=== PATIENT | female | born 1985 | race Caucasian/White ===

== ENCOUNTER 2019-09-19 12:37 | Outpatient (CLI) | payer MEDICAID, SELFPAY ==
[2019-09-19 14:01] LABS: Kit/Specimen SENT
[2019-09-19 14:13] LABS: Abs Immature Grans 0.03 k/cumm (0.0-0.09); Absolute Basophil Count 0.02 k/cumm (0.0-0.2); Absolute Eosinophil Count 0.15 k/cumm (0.0-0.7); Absolute Lymphocyte Count 3.45 k/cumm (1.2-3.4); Absolute Monocyte Count 0.55 k/cumm (0.11-0.7); Absolute Neutrophil Count 4.92 k/cumm (1.2-6.7); Basophils % 0.2; Eosinophils % 1.6; HCT 36.7 % (36.0-46.0); HGB 12.8 g/dL (12.0-15.5); Immature Grans % 0.3 %; Lymphocytes % 37.8; Mean Corp. HGB Concentration 34.9 g/dL (32.0-36.0); Mean Corpuscular Hemoglobin 31.8 pg (27.0-33.0); Mean Corpuscular Volume 91.3 fL (80-95); Mean Platelet Volume 11.2 fL (8.0-11.0); Neutrophils % 54.1; Platelet Count 247 x1000/uL (130-400); RBC 4.02 m/cumm (4.00-5.20); RBC Distribution Width 12.9 % (11.7-14.6); White Blood Cell Count 9.12 k/cumm (4.4-10.8)
[2019-09-19 14:34] LABS: TSH (W/Ref FT4) 1.47 uIU/mL (0.36-3.74)
[2019-09-22 10:59] LABS: Hepatitis B Surface Ag Negative (Negative)
[2019-09-22 11:11] LABS: HIV-1/2 Ag & Ab Screen Negative (Negative)
[2019-09-22 11:27] LABS: Hepatitis C Ab w Rflx HCV PCR Negative (Negative)
[2019-09-23 12:21] LABS: Varicella IgG Antibody Positive (See Note)
[2019-09-23 12:32] LABS: Rubella IgG Ab (UVM) Positive (See Note); Syphilis Serology (RPR) Negative (Negative)
[2019-09-29 17:19] LABS: Result Summary NEGATIVE; Specimen WB Whole Blood
== END 2019-09-19 12:57 ==
LOC: LBN 13:37 → LBO 13:49 → LBN 13:49 → LBO 13:49
PROVIDERS: Visit Provider Advanced Practice Midwife
DX: Z34.91 Encounter for supervision of normal pregnancy, unspecified, first trimester (principal); Z11.4 Encounter for screening for human immunodeficiency virus [HIV]; Z11.59 Encounter for screening for other viral diseases; Z01.84 Encounter for antibody response examination
CPT/HCPCS: 36415; 80055; 86787; 86803; 86850; 86900; 86901; 87340; 87389; 81220; 84443; 86592; 86762

== ENCOUNTER 2019-09-19 15:50 | Outpatient (REF) | payer MEDICAID, SELFPAY ==
--- NOTE | 2019-09-19 11:00 | PAPFT_PTH ---
PATIENT: Anna Marie Stahl LOC: OPAL U#:[id number] AGE/SX: 33/F ROOM: RE09/19/[address]: Sabra Brennan : 1985 BED: DIS: 09/19/2019 SPEC #: [id number] RECD: 09/22/19 12:20 STATUS: ANALILIA REWilver #: [id number] GÉNESIS: 09/19/19 11:[address]: Sabra Brennan DEPT: [facility] Cytology RECD BY: Evaristo Saucedo Tissues: 1 - CX/ENDOCX FOR PAP SMEARS Procedures: PAP THIN PREP/UVM Screening HPV DNA PROBE Comments: [id number]
[2019-09-19 18:10] LABS: *AMPHETAMINES SCREEN URINE Negative (Negative); *BARBITURATES SCREEN URINE Negative (Negative); *BENZODIAZEPINES SCREEN URINE Negative (Negative); Cannabinoids THC POSITIVE (Negative); Cocaine Screen,Urine Negative (Negative); METHADONE URINE SCREEN POSITIVE (Negative); OPIATES URINE SCREEN Negative (Negative)
[2019-09-19 18:13] LABS: Tricyclic Antidepressants Negative (Negative)
[2019-09-22 15:33] LABS: Chlamydia Result Negative (Negative); GC Result Negative (Negative)
[2019-09-23 07:04] LABS: Buprenorphine Negative; Norbuprenorphine Negative
== END 2019-09-19 16:10 ==
LOC: LBN 15:50
PROVIDERS: Visit Provider Advanced Practice Midwife
DX: Z34.91 Encounter for supervision of normal pregnancy, unspecified, first trimester (principal); Z11.3 Encounter for screening for infections with a predominantly sexual mode of transmission; Z12.4 Encounter for screening for malignant neoplasm of cervix
CPT/HCPCS: 80307; 87491; 87591; 88142; 87086; 87624

== ENCOUNTER 2019-10-29 10:50 | Outpatient (CLI) | payer MEDICAID, SELFPAY ==
[2019-10-30 15:20] LABS: Calculated age at EDD 32 years; GA used in risk estimate Scan estimate; IVF Pregnancy No; Initial or repeat testing Initial testing; Insulin dependent diabetes No; Maternal Weight 173 lbs; Number of Fetuses 1; Prev Pregnancy w/NTD No; RECOMMENDED FOLLOW UP None.; Results Summary Normal risk
== END 2019-10-29 11:10 ==
PROVIDERS: Obstetrics & Gynecology; PCP Nurse Practitioner; Visit Provider Nurse Practitioner
DX: Z34.92 Encounter for supervision of normal pregnancy, unspecified, second trimester (principal); Z36.89 Encounter for other specified antenatal screening
CPT/HCPCS: 36415; 82105

== ENCOUNTER 2019-12-08 00:28 | Outpatient (CLI) | payer MEDICAID, SELFPAY ==
--- NOTE | 2019-12-08 | DI.US_ITS ---
EXAM: US OB 2-3 TRIMESTER CLINICAL HISTORY: Z98.891 HX UTERINE SCAR, O09.90 SUPERVISION HIGH RISK . TECHNIQUE: Transabdominal obstetrical ultrasound performed. COMPARISON: No exams were available for comparison FINDINGS: Transabdominal obstetrical ultrasound performed. FINDINGS: Number of fetuses: One. position: Cephalic heart rate: 153 bpm. Placental location: Posterior. No evidence of previa. BIOMETRIC DATA: BPD: 4.9cm HC: 18.1cm AC: 16.5cm FL: 3.7cm Cisterna Magna: 3.5 mm Cerebellum: 2.1 cm EFW: 425 grms 19% Composite Age: 21 weeks 1 day EDC by US: 04/08/2020 Heart Rate: 153BPM Amniotic fluid index: Amount of fluid is within normal limits. ANATOMICAL SURVEY: Four-chambered heart: Unremarkable. LVOT: Unremarkable. RVOT: Unremarkable. Left-sided stomach: Unremarkable. urinary bladder: Unremarkable. Bilateral kidneys: Unremarkable. Three-vessel cord: Unremarkable. Cord insertion: Unremarkable. Posterior fossa:Unremarkable. ventricles: Unremarkable. nose: Unremarkable. lips: Unremarkable. palate: Unremarkable. spine: Unremarkable. Two arms and two legs: Unremarkable. IMPRESSION: 1. Single live intrauterine gestation as above. 2. Normal anatomic survey. DATA REPOSITORY:
== END 2019-12-08 00:48 ==
PROVIDERS: PCP Nurse Practitioner; Visit Provider Obstetrics & Gynecology
DX: Z98.891 History of uterine scar from previous surgery (principal); Z34.92 Encounter for supervision of normal pregnancy, unspecified, second trimester; Z3A.21 21 weeks gestation of pregnancy
CPT/HCPCS: 76805

== ENCOUNTER 2020-02-06 04:03 | Outpatient (CLI) | payer MEDICAID, SELFPAY ==
--- NOTE | 2020-02-06 06:30 | DI.US_ITS ---
EXAM: US OB BOB WEIGHT CLINICAL HISTORY: size less than dates,Z34.83. TECHNIQUE: Transabdominal obstetrical ultrasound performed. COMPARISON: US US OB 2-3 TRIMESTER from 12/08/2019 FINDINGS:: Number of fetuses: One. position: Vertex. Placental location: Posterior. No evidence of previa. BIOMETRIC DATA: BPD: 74mm = 29+ 4 weeks HC: 278mm = 30+ 3 weeks AC: 259mm = 30+ 0 weeks FL: 54 mm = 28+ 4 weeks EFW: 1413 Gms = 11 % Composite Age: 29+ 5 EDC by ultrasound: 18 April 2020 Heart Rate: 139BPM Amniotic fluid index: 19.0 cm. Amount of fluid is within normal limits. Umbilical artery Doppler: 34/10 cm/sec RI = 0.71 PI= 1.20 S/D = 3.47 IMPRESSION: size and weight are within low normal range. Umbilical artery Doppler measurements are within the normal range. DATA REPOSITORY:
[2020-02-06 09:31] LABS: HCT 32.3 % (36.0-46.0); HGB 11.2 g/dL (11.2-15.7); MCHC 34.7 % (32.0-36.0); MCV 92.3 fL (80-95); MPV 9.9 fL (8.0-11.0); Platelet Count 320 10^3/uL (130-400); RDW 13.2 % (11.7-14.6); RDW-SD 44.1 fL; WBC 12.77 10^3/uL (4.4-10.8)
[2020-02-06 09:37] LABS: Glucose,1 Hr (Glucola) 85 mg/dL (80-140)
== END 2020-02-06 04:23 ==
PROVIDERS: PCP Nurse Practitioner; Visit Provider Obstetrics & Gynecology Gynecology
DX: Z34.83 Encounter for supervision of other normal pregnancy, third trimester (principal)
CPT/HCPCS: 36415; 76816; 82950; 85027; 86850; 90384

== ENCOUNTER 2020-02-20 03:58 | Outpatient (CLI) | payer MEDICAID, SELFPAY ==
--- NOTE | 2020-02-20 07:30 | DI.US_ITS ---
EXAM: US OB BOB UMBILICAL ARTERY CLINICAL HISTORY: SMALL FOR AGE,O36.5990. TECHNIQUE: Transabdominal obstetrical ultrasound performed. COMPARISON: US US OB BOB WEIGHT from 02/06/2020 FINDINGS: Transabdominal obstetrical ultrasound performed. FINDINGS: Number of fetuses: One. Placental location: Posterior and fundal. No evidence of previa. BIOMETRIC DATA: Heart Rate: 121BPM Amniotic fluid index: 11.6 cm. Visually, amount of fluid is within normal limits. Umbilical artery: Within normal limits for age. RI is 0.69 PI is 1.18 S/D is 3.19 IMPRESSION: 1. Single live intrauterine gestation as above. 2. Umbilical artery indices within normal limits. 3. Amniotic fluid index is 11.6 cm. Visually within normal limits. DATA REPOSITORY:
== END 2020-02-20 04:18 ==
PROVIDERS: PCP Nurse Practitioner; Visit Provider Obstetrics & Gynecology
DX: O36.5930 Maternal care for other known or suspected poor fetal growth, third trimester, not applicable or unspecified
CPT/HCPCS: 76816; 76820

== ENCOUNTER 2020-02-27 04:47 | Outpatient (CLI) | payer MEDICAID, SELFPAY ==
--- NOTE | 2020-02-27 07:30 | DI.US_ITS ---
EXAM: US OB BOB WEIGHT CLINICAL HISTORY: SGA in ,O36.5990,UMBILICAL ARTERY DOPPLER. COMPARISON: US US OB BOB WEIGHT from 02/06/2020 US US OB BOB UMBILICAL ARTERY from 02/20/2020 TECHNIQUE: Transabdominal obstetrical ultrasound performed. FINDINGS: Sonographic images demonstrate a single intrauterine gestation in cephalic position. Placenta: Posterior Predicted gestational age: 33 +4 weeks Estimated date of delivery 12 April 2020: heart rate motion is Dopplered at: 118 BPM. BPD: 78mm = 30 1+2 weeks HC: 290mm = 31+ 6 weeks AC: 273mm = 30 1+3 weeks FL: 60mm = 30 1+2 weeks EFW: 1758 Grams = 3rd % Sonographically assessed composite gestational age: 31 +3 weeks Estimated date of delivery based on this ultrasound is: 27 April 2020 Amniotic fluid index: 12.5 cm. Amount of fluid is within normal limits. Umbilical artery Doppler evaluation shows resistive index, pulsatility index and systolic-diastolic r atio in the normal range, between 50th and 95th percentiles. IMPRESSION: size and weight are measuring below the normal range. Umbilical artery Doppler evaluation with in normal limits. DATA REPOSITORY:
== END 2020-02-27 05:07 ==
PROVIDERS: PCP Nurse Practitioner; Visit Provider Obstetrics & Gynecology
DX: O36.5931 Maternal care for other known or suspected poor fetal growth, third trimester, fetus 1 (principal)
CPT/HCPCS: 76816

== ENCOUNTER 2020-03-30 12:34 | Outpatient (CLI) | payer MEDICAID, SELFPAY ==
--- NOTE | 2020-03-30 10:45 | DI.US_ITS ---
EXAM: US OB BIOPHYSICAL PROFILE and U/S Ob BOB weight CLINICAL HISTORY: growth and BOB,BPP, O36.5990, Z34.90 TECHNIQUE: Ultrasound biophysical profile performed using standard protocol. COMPARISON: US US OB BOB WEIGHT from 02/27/2020 US US OB BOB WEIGHT from 03/30/2020 FINDINGS: ULTRASOUND BIOPHYSICAL PROFILE: Number of fetuses: One. position: Cephalic heart rate: 117 bpm. Placental grade: 2 Placental location: Posterior. No evidence of previa. Ultrasound gestational age: 33 weeks Estimated weight: 2084 Grams. This corresponds to 1st percentile. Estimated date of delivery: 05/18/2020 based on ultrasound. Amniotic fluid index: 11.8 cm. Single deepest pocket is 3.7 cm. BIOPHYSICAL PROFILE SCORE: breathin out of 2 movement: 2 out of 2 tone: 2 out of 2 Amniotic fluid: 2 out of 2 Overall biophysical profile score: 8 out of 8. Umbilical artery Doppler: Within normal limits. S/D is 2.35 RI is 0.57 PI is 0.93 IMPRESSION: Single live intrauterine gestation. Biophysical profile 8 out of 8. DATA REPOSITORY:
== END 2020-03-30 12:54 ==
PROVIDERS: PCP Nurse Practitioner; Visit Provider Obstetrics & Gynecology
DX: O36.5930 Maternal care for other known or suspected poor fetal growth, third trimester, not applicable or unspecified (principal); Z34.93 Encounter for supervision of normal pregnancy, unspecified, third trimester
CPT/HCPCS: 76815; 76816; 76819

== ENCOUNTER 2020-03-30 13:00 | Inpatient (IN) | payer MEDICAID, SELFPAY ==
[2020-03-30] VITALS (9 sets, daily range): BP systolic 109–126; BP diastolic 16–74; PULSE 54–60; RESP 16–18; TEMP 36.5–36.9; O2SAT 96–98
--- NOTE | 2020-03-30 13:03 | W.PM.HP.N ---
Date of service: 03/30/20 Time of Service: 13:03 Assessment and Plan Assessment and plan (1) SGA (small for gestational age), , affecting care of mother, antepartum: Status: Acute Assessment and plan: In light of the fact that the patient has been noncompliant with her obstetric care, has a history of 2 prior sections, is currently utilizing medication assisted therapy with methadone, and has a fetus at less than the 1st percentile the decision was made for repeat section today. Laboratory studies will be performed. Preoperative antibiotics given. She will have compression stockings for prevention of thromboembolic disorders. Pediatrics is notified and aware of patient will be delivering. (2) Substance use disorder: Status: Acute (3) Social discord: Status: Acute (4) , high-risk: Status: Acute (5) Rh negative state in antepartum period: Status: Acute (6) Tobacco dependence: Status: Acute (7) Previous section: Status: Chronic (8) Anxiety: Status: Chronic (9) Asthma: Status: Chronic History of Present Illness History of Present Illness Chief Complaint: Need for repeat section Narrative: Patient is a 32-year-old female 5 para 2 with history of 2 previous sections. She has had limited care in our office. She was seen today at 38 weeks and 1 day concerned as to when her repeat section will be scheduled. Risk benefits and alternatives of section were explained to the patient full informed consent has been obtained. She does have a history of growth restricted baby this with last ultrasound measuring at the 11th percentile. She had a growth ultrasound with amniotic fluid index and biophysical profile performed today showing baby at less than the 1st percentile with a biophysical of 8 out of 8. She was sent to labor and delivery for monitoring. She is having irregular contractions. heart rate baseline is in the 117 with moderate variability no good accelerations. We discussed continuation of versus repeat section. This was discussed also with pediatrics who agreed that delivery here is reasonable. Laboratory studies were placed along with Covid testing preoperative laboratory studies were ordered and patient will be prepped for section today. Review of Systems All systems reviewed & are unremarkable except as noted in HPI and below Constitutional Constitutional: Reports as per HPI Cardiovascular Cardiovascular: Reports system reviewed and no additional complaints, except as documented Respiratory Respiratory: Reports system reviewed and no additional complaints, except as documented Gastrointestinal Gastrointestinal: Reports system reviewed and no additional complaints, except as documented Genitourinary Genitourinary: Reports system reviewed and no additional complaints, except as documented Musculoskeletal Musculoskeletal: Reports system reviewed and no additional complaints, except as documented Neurologic Neurologic: Reports system reviewed and no additional complaints, except as documented PFSH Medical History Anxiety No meds currently Asthma albuterol PRN Depression no meds currently Marijuana abuse Opioid dependence on agonist therapy , high-risk Social discord 01/28/20 [facility] BF in senior living. She had parole violation and is expecting a court hearing. Substance use disorder 01/28/20. Hx of ETOH use in . Illicit Gabapentin use. Tobacco dependence Surgical History Previous section Family History Father Cancer Social History Smoking risk assessment performed?: No Substance use type: opiates Counseling provided: treatment program Details: 01/21/20. BAART 112mg/day Household members: significant other and other Details: Satinder Gao. Children live with their father Number of Children: 2 current occupation: not employed Current gender identity: female What type of physical activity do you participate in: walking Frequency: other Details: does not have a car. Female Reproductive History Menstrual control method: none History History 4 Para 2 Hx # Term Pregnancies Multiple births Hx # Pregnancies Ectopic pregnancies AB induced 1 Hx Number of Living Children AB spontaneous 1 Past Pregnancies Del. Date GA/Weeks # Outcome Route Wgt Sex Labor Lgth Anesthesia Location Prov Complic 04/29/14 40 No Successful 6 lb 14 oz Male [place] 10/18/15 40 No Successful 5 lb 5 oz Female [place] Delivery Date: 04/29/14 planned due to issue with umbilical cord [facility] Hath[facility] Delivery Date: 10/18/15 scheduled repeat , Sabra Chan Meds Home Medications and Allergies Home Medications Medication Instructions Recorded Confirmed Type methadone 5 mg/5 mL oral solution 95 mg PO DAILY ml 09/10/19 03/30/20 History vitamin with calcium 1 tab PO DAILY #90 tab 10/29/19 03/30/20 Rx no.72-iron 27 mg-folic acid 1 mg tablet albuterol sulfate 90 mcg/actuation 2 puff IH QID PRN #8 gm 02/06/20 03/30/20 Rx aerosol inhaler budesonide 90 mcg/actuation breath 1 inh INHALATION BID #1 ea 02/06/20 03/30/20 Rx activated powder inhaler ondansetron HCl 4 mg tablet 4 mg PO Q8H #24 tab 02/06/20 03/30/20 Rx Allergies Allergy/AdvReac Type Severity Reaction Status Date / Time codeine Allergy Unknown Verified 03/30/20 09:59 Exam Const General: cooperative, healthy appearing and comfortable Nutritional Appearance: average body habitus [facility] General nose exam: external nose normal Eyes General: appearance normal, both eyes and all related structures Conjunctivae: conjunctivae normal Sclera: sclerae normal Cornea: corneas normal Resp Effort & Inspection: normal respiratory effort, no audible wheezes and no cough Auscultation: clear to auscultation bilaterally, no rales, no rhonchi and no wheezes Cardio Palpation: normal PMI Rhythm: regular rhythm Heart Sounds: S1 normal, S2 normal and no murmurs GI Inspection: normal to inspection Palpation: soft, not firm and no guarding Skin General skin exam: no rashes or lesions noted Extrem General: no clubbing, cyanosis or edema Results Labs Result diagrams: 03/30/20 Unknown Last Vital Signs Pulse 58 L 03/30/20 12:35 BP 123/67 03/30/20 12:35 COVID-19 Screening Have you,or household,traveled outside [place] in last 14 days?: No
[2020-03-30] MEDS: Lactated Ringers 1,000 ML 200 ML IV ×2 (13:24→17:53)
[2020-03-30 13:32] LABS: HCT 35.1 % (36.0-46.0); MCH 31.9 pg (27.0-33.0); MCHC 34.2 % (32.0-36.0); MCV 93.4 fL (80-95); MPV 11.3 fL (8.0-11.0); Platelet Count 252 10^3/uL (130-400); RBC 3.76 10^6/uL (3.93-5.22); RDW 12.6 % (11.7-14.6); RDW-SD 43.3 fL; WBC 13.24 10^3/uL (4.4-10.8)
[2020-03-30] MEDS: Sodium Citrate 30 ML CUP PO (13:33)
[2020-03-30] MEDS: AZITHROMYCIN 500 MG in Normal Saline 250 ML 250 MG IVPB (13:34)
[2020-03-30] MEDS: ceFAZolin 2 GM/50 ML BAG IVPB (14:12)
--- NOTE | 2020-03-30 14:21 | PLAC_PTH ---
PATIENT: Anna Marie Stahl LOC: OBS U#:[id number] AGE/SX: 34/F ROOM: OBS.305 RE03/30/[address]: Amy Cabrera DO : 1985 BED: A DIS: 04/01/2020 SPEC #: [id number] RECD: 03/30/20 17:08 STATUS: ANALILIA REQ #: [id number] GÉNESIS: 03/30/20 14:[address]: Amy Cabrera DEPT: Surgical Specimen RECD BY: Wendy Pedersen ENTERED: 03/30/20 17:09 SP TYPE: PLAC OTHR DR: Lorrie Wilcox Tissues: 1 - PLACENTA (3RD TRIMESTER) Procedures: GROSS AND MICRO LEVEL 5 Comments: [id number]
--- NOTE | 2020-03-30 14:55 | W.PM.OBCSECT ---
Date of service: 03/30/20 Time of Service: 14:55 Operative Note Operative Note Delivery Method: Unscheduled Category: Urgent DATE OF PROCEDURE: 03/30/20 PRE-OP DIAGNOSES: IUP at 38 1/7, severe IUGR POST-OP DIAGNOSES: same 5 para 2 at 38-1/7 weeks gestation. Severe IUGR with estimated weight less than the 1st percentile, scant care, prior section x2, substance use disorder PROCEDURE: Repeat low transverse section SURGEON: Amy Cabrera Assisting Surgeon: Crispin Rubalcava Anesthesia: spinal Estimated blood loss (mL): 500 Pathology: other (Placenta for exam, segment of cord for toxicology) Patient was transported to: floor Patient's condition: stable Indications: at 38-1/7 weeks gestation #2 prior section x2 #3 severe growth restriction Findings: Delivery of viable female infant. Procedure Description: Patient is a 34-year-old female 5 para 2-0-2-2 who had limited care at the [facility]. She presented today at 38-1/7 weeks gestation. She has a known history of 2 prior sections and substance use disorder for which she has been using methadone through the [facility] program. She was known to have growth restriction with last ultrasound approximately 2 months ago and baby measuring at 11 percentile. Recommendation at that point was for weekly cord Dopplers which were not undertaken. She presented today for visit and scheduling of her repeat section. She was significantly size less than dates. She an ultrasound performed today with biophysical profile showing an estimated weight at 2000 g, less than the 1st percentile and a normal biophysical profile. Nonstress test was nonreactive with moderate variability. In light of this fact, consultation with pediatrics was undertaken and they agreed with delivery here in the late phase. Risk benefits and alternatives procedure have been explained to the patient full informed consent was obtained. She was taken to the operating suite with an IV running where she is placed in a seated position and spinal anesthesia administered tested and found to be adequate. She was then placed in the dorsal supine position with a leftward tilt and prepped and draped in the usual sterile fashion. At this point after Suarez catheter and compression stockings had been placed Pfannenstiel skin incision was made carried down to the underlying fascia. The fascia was nicked in the midline and extended laterally. Rectus muscles identified split in the midline and peritoneum identified tented up and entered sharply. The peritoneal incision was then extended superiorly and inferiorly and the bladder blade was inserted. Vesicouterine peritoneum identified tented up and entered sharply and the bladder was meticulously dissected off the lower uterine segment. The lower uterine segment was found to be significantly thin and transparent. Incision was made in the midline and extended bluntly laterally. Amniotic sac was ruptured for yellowish fluid and the vertex was delivered through the uterine incision. Shoulders followed with ease. There was no evidence of nuchal cord. Three-vessel cord was noted clamped x2 and cut and the was handed off to the waiting pediatric group. At this port cord blood, and a segment of cord was obtained for toxicology. The placenta was manually expressed from the uterus. Uterus exteriorized and cleared of all clot and debris. Uterine incision was then closed using 0 Monocryl suture in a running locked fashion and a second layer of an imbricating stitch of 0 Monocryl was performed. Uterus was reinspected and found to be hemostatic. Tubes and ovaries were normal. Uterus returned to the abdomen. At this point the fascial incision was closed using 0 Vicryl suture in a running fashion. Subcutaneous tissue irrigated with copious muscle normal saline and the subcu space closed with 3-0 Vicryl. Skin edge was reapproximated with a 4-0 undyed Monocryl in a subcuticular fashion. Steri-Strips were then placed. Patient was then returned to the center in stable condition. Findings: Delivered viable female weight and Apgars pending EBL: 500 cc Complications: None apparent
[2020-03-30] MEDS: Ketorolac 30 MG/ML VIAL IVP ×2 (16:34→22:07)
[2020-03-30] MEDS: Oxytocin/Normal Saline 30 UNIT/500 ML BAG 95 UNITS IV (16:51)
[2020-03-30] MEDS: Acetaminophen 325 MG TAB 650 MG PO (20:00)
[2020-03-30] MEDS: Normal Saline Flush 10 ML SYR IVP (22:07)
[2020-03-31] VITALS (7 sets, daily range): BP systolic 108–135; BP diastolic 68–74; PULSE 54–62; RESP 16–96; TEMP 36.6–36.8; O2SAT 96
[2020-03-31] MEDS: Acetaminophen 325 MG TAB 650 MG PO ×2 (00:20→15:53)
[2020-03-31] MEDS: Normal Saline Flush 10 ML SYR IVP ×2 (04:30→10:06)
[2020-03-31] MEDS: Ketorolac 30 MG/ML VIAL IVP ×2 (04:30→10:05)
[2020-03-31 07:37] LABS: Abs Immature Grans 0.06 10^3/uL (0.0-0.06); Absolute Basophil Count 0.04 10^3/uL (0.0-0.2); Absolute Lymphocyte Count 4.01 10^3/uL (1.2-3.4); Absolute Neutrophil Count 5.65 10^3/uL (1.2-6.7); Basophils % 0.4; Eosinophils % 1.8; HCT 30.1 % (36.0-46.0); HGB 10.3 g/dL (11.2-15.7); Immature Grans % 0.6; Lymphocytes % 36.9; MCH 31.9 pg (27.0-33.0); MCHC 34.2 % (32.0-36.0); MCV 93.2 fL (80-95); MPV 11.9 fL (8.0-11.0); Monocytes % 8.3; Nucleated RBC 0 %; Platelet Count 202 10^3/uL (130-400); RBC 3.23 10^6/uL (3.93-5.22); RDW 12.8 % (11.7-14.6); RDW-SD 43.7 fL; WBC 10.86 10^3/uL (4.4-10.8)
--- NOTE | 2020-03-31 08:18 | W.PM.OBPNV1 ---
Date of service: 03/31/20 Time of Service: 08:18 Assessment and Plan Assessment and plan (1) Status post repeat low transverse section: Status: Acute Assessment and plan: Postoperative day #1 status post repeat low transverse section at 38 weeks and 1 day due to severe intrauterine growth restriction. Doing well. Will ambulate, advance diet, oral pain medication. (2) Substance use disorder: Status: Acute Assessment and plan: Patient has been on the methadone medication assisted therapy program through July. Her dose was confirmed today at 110 mg on a daily basis. She does understand that if we dose her today and tomorrow she will return to her previous doses that were dispensed to her program upon her return on Sunday. (3) SGA (small for gestational age), , affecting care of mother, antepartum: Status: Acute Assessment and plan: Baby doing well, rooming in, working on breast-feed (4) Social discord: Status: Acute Subjective Subjective Interval history: Patient seen and examined this morning. She is doing well. She has some pain but is reasonably well controlled. She is pumping to express colostrum for her baby who is in the room doing well. Patient comments: No complaints Patient's Mood: Appropriate [place] feeding status: Pumping and bottle feeding Exam Physical Exam Vital signs: Temp Pulse Resp BP Pulse Ox 97.9 F 54 L 16 135/71 96 03/31/20 07:56 03/31/20 07:56 03/31/20 07:56 03/31/20 07:56 03/31/20 00:00 Constitutional Constitutional: no acute distress HEENT Exam HEENT Exam: Normal Detailed Neck Exam Neck exam general surgery: Present supple Respiratory Exam Respiratory Exam: Normal Cardiovascular Exam Cardiovascular Exam: Normal Abdominal Exam Comments: Abdomen soft, nontender, uterus firm. Incision examined, healing well, no drainage or discharge. Fundal Exam Fundus: Below Umbilicus and Firm Extremities Exam Extremity Exam: Normal; negative Calf Tenderness and Edema Skin Exam Skin Exam: Normal Neurological Exam Neurological Exam: Normal DetailedPsychiatric Exam Psych Exam: Normal Affect and Cooperative Results Hemoglobin/Hematocrit: Hgb 10.3 g/dL (11.2-15.7) L 03/31/20 07:05 Hct 30.1 % (36.0-46.0) L 03/31/20 07:05 Abnormal Lab Findings: Abnormal Labs 03/30/20 03/31/20 13:20 07:05 WBC 13.24 H 10.86 H RBC 3.76 L 3.23 L Hgb 10.3 L Hct 35.1 L 30.1 L MPV 11.3 H 11.9 H Absolute Lymphocytes 4.01 H Absolute Monocytes 0.90 H
[2020-03-31] MEDS: Methadone Liquid 10 MG/ML 110 MG PO (09:12)
--- NOTE | 2020-03-31 14:53 | NUR.NOTE ---
Nursing Note: Received phone call from Carol Bergman, [facility] worker out of [place], [place] who has been the manager of case management for Anna Marie's older two children. She believes the case number for her older two children is #[id number]. Carol states that she has had a difficult time contacting the pt and is looking to follow-up with her delivery status as well as any issues noted with the . The [facility] office does plan to close Anna Marie's open case with them as her two older children are back in the custody of their father. Reviewed pt hx with Carol, including that pt was not seen in office for care from 02/06/20 until 03/30/20. Carol states I was worried about that. Carol asked if baby had tested for any other substances and was informed that Cord Drug Detection Screen was sent but will not have results for several days. Discussed that Anna Marie does also have a new case open with the [place], [place] DCF office and believes that block and case maker name is Rona. She also believes Rona plans to wait until pt is discharged to home to complete a home visit and follow-up with case. Discussed that case number and workers name would be placed on pt chart for follow-up by healthcare team. No further questions at this time.
[2020-03-31] MEDS: Ibuprofen 600 MG TAB PO ×2 (15:52→20:21)
[2020-03-31] MEDS: oxyCODONE 5 mg/Acetaminophen 325 mg TAB PO (20:28)
[2020-04-01 00:15] VITALS: BP 118/72; PULSE 64; RESP 16; TEMP 36.8
[2020-04-01] MEDS: oxyCODONE 5 mg/Acetaminophen 325 mg TAB PO (04:14)
[2020-04-01] MEDS: Ibuprofen 600 MG TAB PO (04:14)
[2020-04-01 04:37] VITALS: BP 98/62; PULSE 52; RESP 18; TEMP 37
--- NOTE | 2020-04-01 04:39 | NUR.NOTE ---
Nursing Note: Babe back to mom's room at 4:15, asleep on back in crib. (see documentation in baby chart) Discussed with patient how unsafe the baby was when I found her in bed with mom earlier. Demonstrated how babe was sleeping in crib, encouraged wrapping baby in single receiving blanket for comfort. Encouraged pt to call for nursing staff if she feels she is too sleepy to safely care for . Pt verbalizes understanding. Again offered to assist patient with pump set up or . Pt declines at this time.
[2020-04-01 07:47] VITALS: BP 112/66; PULSE 63; RESP 98; TEMP 36.6
--- NOTE | 2020-04-01 08:12 | OBPPV_ITS ---
Date of service: 04/01/20 Time of Service: 08:12 Assessment and Plan Assessment and plan (1) Status post repeat low transverse section: Status: Acute Assessment and plan: Postoperative day #2 status post repeat low transverse uterine incision section. Doing well. Discharge home today. Follow-up in the office in 2 weeks. Depo-Provera for contraception (2) SGA (small for gestational age), , affecting care of mother, antepartum: Status: Acute (3) Substance use disorder: Status: Acute Subjective Subjective Interval history: Patient seen postoperative day #2. She is ambulating, tolerat ing her regular diet and oral pain medication with stable vital signs. She is anticipating discharge today as a border. Patient comments: No complaints, Pain well controlled, Incisional pain, Tolerating diet and Flatus present baby status: Doing well Exam Physical Exam Vital signs: Temp Pulse Resp BP Pulse Ox 97.9 F 63 98 H 112/66 96 04/01/20 07:47 04/01/20 07:47 04/01/20 07:47 04/01/20 07:47 03/31/20 00:00 Constitutional Constitutional: no acute distress HEENT Exam HEENT Exam: Normal Respiratory Exam Respiratory Exam: Normal Cardiovascular Exam Cardiovascular Exam: Normal Abdominal Exam Abdomen: Tender Fundal Exam Fundus: Below Umbilicus and Firm Detailed Skin Exam Skin: Present intact Comments: Incision healing well. Limited ecchymosis in the superior and inferior aspect of the incision. No evidence of erythema Detailed Neurological Exam Neurological: Present alert and oriented X3 Results Hemoglobin/Hematocrit: Hgb 10.3 g/dL (11.2-15.7) L 03/31/20 07:05 Hct 30.1 % (36.0-46.0) L 03/31/20 07:05 Abnormal Lab Findings: Abnormal Labs 03/30/20 03/31/20 13:20 07:05 WBC 13.24 H 10.86 H RBC 3.76 L 3.23 L Hgb 10.3 L Hct 35.1 L 30.1 L MPV 11.3 H 11.9 H Absolute Lymphocytes 4.01 H Absolute Monocytes 0.90 H
--- NOTE | 2020-04-01 08:18 | W.PM.DS.N ---
Date of service: 04/01/20 Time of Service: 08:18 DS: Diagnosis Discharge Diagnosis (1) Status post repeat low transverse section: Status: Acute (2) SGA (small for gestational age), , affecting care of mother, antepartum: Status: Acute (3) Substance use disorder: Status: Acute Discharge Plan Disposition Patient Disposition: HOME Condition: Good Discharge Details Reason For Visit: DELIVERY Admit Date/Time: 03/30/20 13:00 Admit Provider: Amy Cabrera Attending Provider: Amy Cabrrea Primary Care Provider: Lorrie Wilcox Hospital Course Hospital Course: Patient was admitted for repeat low transverse section. She had limited care with his wellness. She was noted to have severe growth restriction of her baby at 38 weeks and 1 day. She underwent her repeat section due to this reason. She had uncomplicated postoperative course. She was discharged to a [facility] status postoperative day #2. Ambulating, tolerating regular diet and oral pain medication with stable vital signs. Her follow-up will be in the office in 2 weeks. She will continue her medication assisted therapy with methadone through the [facility] program. She will receive Depo-Provera prior to her discharge. Home Meds and New Rx's Prescriptions: New ibuprofen 800 mg tablet 800 mg PO Q8H Qty: 20 RF: 2 docusate sodium [Colace] 100 mg capsule 100 mg PO DAILY Qty: 30 RF: 0 No Action methadone 5 mg/5 mL solution 95 mg PO DAILY RF: 0 PrePlus 27 mg iron- 1 mg tablet 1 tab PO DAILY Qty: 90 RF: 6 ondansetron HCl 4 mg tablet 4 mg PO Q8H Qty: 24 RF: 4 Pulmicort Flexhaler 90 mcg/actuation aerosol powdr breath activated 1 inh inhalation BID Qty: 1 RF: 3 albuterol sulfate 90 mcg/actuation HFA aerosol inhaler 2 puff IH QID PRN (Reason: shortness of breath or wheezing) Qty: 8 RF: 4 Discharge Instructions Instructions: (DC) Activity:: Activity as Tolerated Equipment/Supplies:: No Equipment Needed Diet:: As Tolerated Discharge Orders Discharge Orders: Discharge Order (Routine); Ordered 04/01/20 Ordered By: Amy Cabrera DS: Summary Summary Time spent discussing smoking cessation with patient: 3 to 10 minutes Status at Discharge Functional status at discharge: independent ambulation Overall status at discharge: patient is back to baseline Mental Status: mental status grossly normal Speech and Movement: speech and movement normal Mood: congruent mood Affect: normal affect Exam Narrative Exam Narrative: See physical exam from progress note dated 04/01/2020 Psych Mental Status: mental status grossly normal Speech and Movement: speech and movement normal Mood: congruent mood Affect: normal affect DS: Data Vitals/I&O Vitals and I&O: Vital Signs Temperature 97.9 F 04/01/20 07:47 Temperature Source Oral 03/31/20 07:55 Pulse 63 04/01/20 07:47 Pulse Rhythm Regular 04/01/20 07:47 Respiratory Rate 98 H 04/01/20 07:47 Blood Pressure 112/66 04/01/20 07:47 Blood Pressure Mean 81 04/01/20 07:47 Pulse Oximetry 96 03/31/20 00:00 Oxygen Delivery Method Room Air 03/31/20 07:55 Oxygen Flow Rate 0 03/31/20 07:55 Pain Level 2 04/01/20 05:14 Comment 04/01/20 04:37 Intake & Output 03/31/20 03/31/20 04/01/20 11:59 23:59 11:59 Intake Total 1500 / 2150 650 / 2150 Output Total 2850 / 3450 600 / 3450 Balance -1350 / -1300 50 / -1300 Intake: IV 1500 / 1500 Oral 650 / 650 Output: Urine 2850 / 3450 600 / 3450 Other: Urine Color Yellow Yellow Urine Appearance Clear Data Completed and Pending Labs on day of discharge: Labs from last 24 hours 03/31/20 03/31/20 03/30/20 10:05 05:00 13:20 COVID-19 PCR Cancelled Nasopharyn COVID-19 PCR Cancelled SARS-CoV-2 Source Pending SARS-CoV-2 (PCR) Pending Ref Test Perform Site Cancelled Patient ABO/Rh B Negative Antibody Screen Positive Antibody Identification Anti-D Screen Negative Unit Expiration Date [id number] Product Lot # [id number] [facility] Medical History Anxiety No meds currently Asthma albuterol PRN Depression no meds currently Marijuana abuse Opioid dependence on agonist therapy , high-risk Social discord 01/28/20 Living at [facility]. BF in shelter. She had parole violation and is expecting a court hearing. Substance use disorder 01/28/20. Hx of ETOH use in . Illicit Gabapentin use. Tobacco dependence Surgical History (Updated 03/31/20 @ 08:24 by Amy Cabrera DO) Previous section Status post repeat low transverse section Family History Father Cancer Social History Smoking risk assessment performed?: No Substance use type: opiates Counseling provided: treatment program Details: 01/21/20. BAART 112mg/day Household members: significant other and other Details: BF. Gao. Children live with their father Number of Children: 2 current occupation: not employed Current gender identity: female What type of physical activity do you participate in: walking Frequency: other Details: does not have a car. Female Reproductive History Menstrual control method: none History History 4 Para 2 Hx # Term Pregnancies Multiple births Hx # Pregnancies Ectopic pregnancies AB induced 1 Hx Number of Living Children AB spontaneous 1 Past Pregnancies Del. Date GA/Weeks # Outcome Route Wgt Sex Labor Lgth Anesthesia Location [facility] 04/29/14 40 No Successful 6 lb 14 oz Male [place] 10/18/15 40 No Successful 5 lb 5 oz Female [place] Delivery Date: 04/29/14 planned due to issue with umbilical cord Sabra Hathaway Delivery Date: 10/18/15 scheduled repeat , Sabra Chan
[2020-04-01 14:48] LABS: SARS-CoV-2 RNA Not Detected (NotDetected); SARS-CoV-2 RNA Source Nasal/Nares
== END 2020-04-01 09:42 | disposition home or self-care (01) | DRG 787 ==
LOC: OBS 15:03 → BCD 04-01 10:02
PROVIDERS: Admitting Provider Obstetrics & Gynecology; PCP Nurse Practitioner; Visit Provider Obstetrics & Gynecology
PROC: 10D00Z1 Extraction of Products of Conception, Low, Open Approach (ICD-10-PCS; CPT 59514; principal; 2020-03-30 13:45)
DX: O36.5930 Maternal care for other known or suspected poor fetal growth, third trimester, not applicable or unspecified (principal); O99.324 Drug use complicating childbirth; F11.20 Opioid dependence, uncomplicated; Z37.0 Single live birth; O34.211 Maternal care for low transverse scar from previous cesarean delivery; Z3A.38 38 weeks gestation of pregnancy; Z73.5 Social role conflict, not elsewhere classified; O99.334 Smoking (tobacco) complicating childbirth; F17.210 Nicotine dependence, cigarettes, uncomplicated; O99.344 Other mental disorders complicating childbirth; F41.9 Anxiety disorder, unspecified; Z03.818 Encounter for observation for suspected exposure to other biological agents ruled out; F12.10 Cannabis abuse, uncomplicated; Z30.013 Encounter for initial prescription of injectable contraceptive; O26.893 Other specified pregnancy related conditions, third trimester; Z67.21 Type B blood, Rh negative; Z11.59 Encounter for screening for other viral diseases
CPT/HCPCS: 59514; 36415; 85027; 85461; 86850; 86900; 86901; 90384; 99223; 99238; U0003; 59025; 85025; 86870; 88307; J0456; J0690; J1050; J1885; J2405; J2790

== ENCOUNTER 2020-04-03 14:33 | Emergency (ER) | payer MEDICAID, SELFPAY ==
[2020-04-03 14:34] VITALS: BP 136/84; PULSE 60; RESP 18; TEMP 36.4; O2SAT 99
--- NOTE | 2020-04-03 14:41 | ED.GENADUL_ITS ---
Discharge Plan Disposition Patient Disposition: HOME Condition: Stable Discharge Details Clinical Impression: Fatigue Primary Care Provider: Lorrie Wilcox ED Provider: Meme Chu Home Meds and New Rx's Prescriptions: Continued methadone 5 mg/5 mL solution 110 mg PO DAILY RF: 0 Pulmicort Flexhaler 90 mcg/actuation aerosol powdr breath activated 1 inh inhalation BID Qty: 1 RF: 3 albuterol sulfate 90 mcg/actuation HFA aerosol inhaler 2 puff IH QID PRN (Reason: shortness of breath or wheezing) Qty: 8 RF: 4 ibuprofen 800 mg tablet 800 mg PO Q8H Qty: 20 RF: 2 docusate sodium [Colace] 100 mg capsule 100 mg PO DAILY Qty: 30 RF: 0 Discharge Instructions Instructions: Fatigue (ED) Additional Instructions: Drink plenty of fluids and get plenty of rest. Follow-up with your [facility] as directed for follow up after your recent c- section. Return to the emergency department with any worsening or new concerning symptoms. Discharge Data Discharge Date/Time-TO BE ENTERED AT DEPARTURE: 04/03/20 15:09 Discharge Physician: Meme Chu Medical Decision Making 34-year-old female who is 3 days status post here presents for evaluation after found sleeping in a wheelchair outside of the hospital. Bystanders were concerned about possible unresponsive patient. Patient states she went outside to smoke a cigarette and fell asleep in one of the wheelchairs. Her boyfriend had reported her missing upstairs as she was visiting her baby on the floor and went outside to smoke a cigarette. When staff went to check on her she was difficult to arouse and was brought to the ER for further evaluation. Patient states she was only asleep and denies any symptoms before or at this time. She smokes marijuana and clothing smells of marijuana. She denies any other alcohol or drug use. Her vitals are within normal limits. She has no acute findings on exam. C- section incision healing very well without signs of cellulitis. Advised to follow up with the primary care doctor for re-evaluation. Usual and customary return precautions given prior to discharge. HPI General Mode of arrival: ambulatory . Date/Time Provider Initiated Documentation: 04/03/20 14:39 . Limitations to Documentation: no limitations . Information obtained by: patient . HPI Narrative: Patient is a 34-year-old female who is 3 days status post who presents after found asleep in a wheelchair outside the hospital and thought initially to be unresponsive but was difficult to arouse and is now awake and alert on arrival to the ED. Patient was visiting her baby up on the floor when she went outside to have a cigarette while sitting out in a hospital wheelchair and fell asleep. Her boyfriend up on the floor noted that she had been missing for 3 hours and alerted staff who found patient sleeping outside in a wheelchair. Staff noted that patient was difficult to arouse and they attempted to bring her to the ED for further evaluation. Patient states she feels very sorry for what it happened as she just went outside to smoke a cigarette and sit in a wheelchair but fell asleep there. She states she had no symptoms prior to or since falling asleep. She states she has not slept much since her and is very tired and fell asleep while sitting. She denies any fever, chest pain, shortness of breath, abdominal pain, excessive vaginal bleeding or dizziness. Related Data Home Medications Medication Instructions Recorded Confirmed methadone 5 mg/5 mL oral solution 110 mg PO DAILY ml 09/10/19 04/03/20 albuterol sulfate 90 mcg/actuation 2 puff IH QID PRN #8 gm 02/06/20 04/03/20 aerosol inhaler budesonide 90 mcg/actuation breath 1 inh INHALATION BID #1 ea 02/06/20 04/03/20 activated powder inhaler docusate sodium [Colace] 100 mg PO DAILY #30 cap 04/01/20 04/03/20 ibuprofen 800 mg PO Q8H #20 tab 04/01/20 04/03/20 Previous Rx's Medication Instructions Recorded albuterol sulfate 90 mcg/actuation 2 puff IH QID PRN #8 gm 02/06/20 aerosol inhaler budesonide 90 mcg/actuation breath 1 inh INHALATION BID #1 ea 02/06/20 activated powder inhaler docusate sodium [Colace] 100 mg PO DAILY #30 cap 04/01/20 ibuprofen 800 mg PO Q8H #20 tab 04/01/20 Allergies Allergy/AdvReac Type Severity Reaction Status Date / Time codeine Allergy Unknown Verified 04/03/20 14:47 Review of Systems All systems reviewed & are unremarkable except as noted in HPI and below Constitutional Constitutional: Reports as per HPI, Denies chills and Denies fever(s) Eyes Eyes: Denies blurry vision ENT Ears, Nose, Mouth, and Throat: Denies dizziness, Denies sore throat and Denies throat swelling Cardiovascular Cardiovascular: Denies chest pain and Denies dyspnea Respiratory Respiratory: Denies cough and Denies dyspnea Gastrointestinal Gastrointestinal: Denies abdominal pain, Denies diarrhea and Denies vomiting Genitourinary Genitourinary: Denies hematuria and Denies dysuria Musculoskeletal Musculoskeletal: Denies back pain and Denies numbness Integumentary/Breasts Skin/Breast: Denies lesions and Denies rash Neurologic Neurologic: Denies dizziness, Denies localized weakness and Denies numbness Allergic/Immunologic Allergic/Immunologic: Denies throat swelling [facility] Medical History (Updated 04/03/20 @ 14:58 by Meme Chu DO) Anxiety No meds currently Asthma albuterol PRN Depression no meds currently Marijuana abuse Opioid dependence on agonist therapy , high-risk Social discord 01/28/20 Living at [facility]. BF in [facility]dc. She had parole violation and is expecting a court hearing. Substance use disorder 01/28/20. Hx of ETOH use in . Illicit Gabapentin use. Tobacco dependence Surgical History (Updated 03/31/20 @ 08:24 by Amy Cabrera DO) Previous section Status post repeat low transverse section Family History Father Cancer Social History Smoking/Tobacco Use Status: Current every day Tobacco Type: cigarettes Smoking packs per day: 10 Smoking cigarettes per day: 200.0 Smoking risk assessment performed?: Yes Substance use type: marijuana and opiates Counseling provided: treatment program Details: 01/21/20. BAART 112mg/day Household members: significant other and other Details: BF. Gao. Children live with their father Number of Children: 2 current occupation: not employed Current gender identity: female What type of physical activity do you participate in: walking Frequency: other Details: does not have a car. Do you feel safe at home: Yes Do you feel safe in your relationship?: Yes Female Reproductive History Menstrual control method: none History History 4 Para 2 Hx # Term Pregnancies Multiple births Hx # Pregnancies Ectopic pregnancies AB induced 1 Hx Number of Living Children AB spontaneous 1 Past Pregnancies Del. Date GA/Weeks # Outcome Route Wgt Sex Labor Lgth Anesthes ia Location Prov [facility] 04/29/14 40 No Successful 3118.448 g Male [place] 10/18/15 40 No Successful 2409.709 g Female [place] Delivery Date: 04/29/14 planned due to issue with umbilical cord [place] Delivery Date: 10/18/15 scheduled repeat , Sabra Chan Exam Const General: cooperative, healthy appearing and no acute distress HENMT Head: normal to inspection Face and sinus: normal facial exam Eyes General: appearance normal, both eyes and all related structures Pupils: PERRL EOM: EOM intact bilaterally Neck Neck: normal visual inspection and No submandibular swelling Lymphatic: no lymphadenopathy noted Chest Chest: normal inspection of the chest and no tenderness Resp Effort & Inspection: normal respiratory effort and able to speak in complete sentences Auscultation: clear to auscultation bilaterally Cardio Rate: regular rate Rhythm: regular rhythm GI Inspection: normal to inspection Palpation: soft, not firm, not rigid and nontender Auscultation: normal bowel sounds Back/Spine/Pelvis Thoracic/Lumbar Spine: thoracic and lumbar spine normal to inspection Pelvis: no pain with anterior-posterior compression Skin General skin exam: no rashes or lesions noted Neuro General: patient alert, patient awake and patient oriented x3 Cognition: normal cognition Speech: speech normal Motor: muscle tone normal throughout Sensory Exam: no sensory deficits noted Extrem General: normal to inspection, full ROM, capillary refill normal, no calf tenderness bilaterally and no edema Psych Appearance: grossly normal Mental Status: mental status grossly normal Speech and Movement: speech and movement normal Affect: normal affect
[2020-04-03 14:53] VITALS: RESP 13
== END 2020-04-03 15:09 | disposition home or self-care (01) ==
PROVIDERS: Emergency Provider Physician Assistant; PCP Nurse Practitioner
DX: R53.83 Other fatigue (principal); F11.20 Opioid dependence, uncomplicated; F12.10 Cannabis abuse, uncomplicated
CPT/HCPCS: 99282; 99283

== ENCOUNTER 2020-07-12 14:26 | Outpatient (REF) | payer MEDICAID, SELFPAY ==
[2020-07-12 18:54] LABS: HCT 36.9 % (36.0-46.0); HGB 12.3 g/dL (11.2-15.7); MCH 31.5 pg (27.0-33.0); MCHC 33.3 % (32.0-36.0); MCV 94.6 fL (80-95); MPV 10.3 fL (8.0-11.0); Platelet Count 268 10^3/uL (130-400); RDW 13.2 % (11.7-14.6); RDW-SD 46.2 fL; WBC 7.74 10^3/uL (4.4-10.8)
[2020-07-12 21:38] LABS: ALT 34 U/L (14-59); AST 24 U/L (15-37); Albumin 3.6 g/dL (3.4-5.0); Alkaline Phosphatase 106 U/L (46-116); Anion Gap 6.1 mmol/L (3-11); BUN 20 mg/dL (7-18); Bilirubin, Total 0.2 mg/dL (0.2-1.0); CO2 27.9 mmol/L (21.0-32.0); CREATININE 0.8 mg/dL (0.55-1.02); Calcium 9.2 mg/dL (8.5-10.1); Calculated LDL 151 mg/dL (<100); Chloride 103 mmol/L (98-107); Cholesterol 219 mg/dL (<200); Glucose 106 mg/dL (74-106); HDL Cholesterol 39 mg/dL (40-60); Potassium 4.7 mmol/L (3.5-5.1); Sodium 137 mmol/L (136-145); Total Protein 6.9 g/dL (6.4-8.2); Triglyceride 147 mg/dL (<150)
[2020-07-12 21:59] LABS: FREE T4 0.78 ng/dL (0.76-1.46)
== END 2020-07-12 14:27 | disposition home or self-care (01) ==
LOC: NCHCN 14:26
PROVIDERS: PCP Nurse Practitioner; Visit Provider Physician Assistant
DX: F32.9 Major depressive disorder, single episode, unspecified (principal); G25.81 Restless legs syndrome; Z13.220 Encounter for screening for lipoid disorders; R63.5 Abnormal weight gain
CPT/HCPCS: 80053; 80061; 85027; 84439; 84443

== ENCOUNTER 2023-06-11 13:21 | Outpatient (CLI) | payer MEDICAID, SELFPAY ==
--- NOTE | 2023-06-11 13:15 | RT.EKG_ITS ---
APPROVED REPORT Exam: Resting ECG Reason for Exam: HIGH RISK MEDICATION Patient Location: O HR:65 bpm ECG Measurements Heart Rate 65 AXIS UT 149 P 16 QRSd 91 QRS 33 QT 436 T 8 QTc 454 Conclusion Sinus rhythm...normal P axis, V-rate 50- 99 I have reviewed and interpreted ECG and agree with software generated interpretation.
== END 2023-06-11 13:22 | disposition home or self-care (01) ==
LOC: CARDOPNVT 13:21
PROVIDERS: PCP Nurse Practitioner; Visit Provider Family Medicine
DX: Z79.899 Other long term (current) drug therapy (principal)
CPT/HCPCS: 93005; 93010

== ENCOUNTER 2024-04-23 13:39 | Outpatient (REF) | payer MEDICAID, SELFPAY | END 2024-04-23 13:40 | disposition home or self-care (01) | LOC: LBN 13:39 | PROVIDERS: Visit Provider Physician Assistant Medical | DX: L08.9 Local infection of the skin and subcutaneous tissue, unspecified (principal) | CPT/HCPCS: 87077; 87070; 87186; 87205 ==

== ENCOUNTER 2024-07-24 13:28 | Outpatient (CLI) | payer MEDICAID, SELFPAY ==
--- NOTE | 2024-07-24 13:30 | RT.EKG_ITS ---
APPROVED REPORT Exam: Resting ECG Reason for Exam: HIGH RISK MEDICATION USE Patient Location: O HR:64 bpm ECG Measurements Heart Rate 64 AXIS KS 132 P -1 QRSd 93 QRS 20 QT 426 T -3 QTc 440 Conclusion Sinus rhythm...normal P axis, V-rate 50- 99 RSR' in V1 or V2, normal variant
== END 2024-07-24 13:29 | disposition home or self-care (01) ==
PROVIDERS: Visit Provider Family Medicine
DX: Z79.899 Other long term (current) drug therapy (principal)
CPT/HCPCS: 93005; 93010

== ENCOUNTER 2024-12-21 12:00 | Emergency (ER) | payer MEDICAID, SELFPAY ==
[2024-12-21 12:34] VITALS: BP 132/85; PULSE 82; RESP 16; TEMP 36.8; O2SAT 96
[2024-12-21 12:41] VITALS: BP 120/84; PULSE 55; RESP 16; TEMP 36.9; O2SAT 98
--- NOTE | 2024-12-21 12:41 | ED.GENADUL_ITS ---
Discharge Plan Disposition Patient Disposition: Home Condition: Stable Discharge Details Clinical Impression: Cellulitis of lip Primary Care Provider: Daniele Cabello ED Provider: Elsie Jean Home Meds and New Rx's Prescriptions: New cephalexin 500 mg capsule 500 mg PO BID 7 Days Qty: 14 0RF Rx Instructions: Take one tablet twice daily x 7 days. No Action methadone 5 mg/5 mL solution 110 mg PO DAILY Pulmicort Flexhaler 90 mcg/actuation aerosol powdr breath activated 1 inh inhalation BID Qty: 1 3RF albuterol sulfate 90 mcg/actuation HFA aerosol inhaler 2 puff IH QID PRN (Reason: shortness of breath or wheezing) Qty: 8 4RF ibuprofen 800 mg tablet 800 mg PO Q8H Qty: 20 2RF docusate sodium [Colace] 100 mg capsule 100 mg PO DAILY Qty: 30 0RF Discharge Instructions Instructions: Cellulitis (Skin Infection), Adult ED Additional Instructions: Take Abx as directed with yogurt or probiotics, You may continue with warm compresses and neosporin or similar. Do not pick at area. Return if worseing swelling, redness, or concerns. Follow up with PCP in 5-7 days. Referrals: Primary Care Provider [Outside] - 1 week Referral Note: Lip cellulitis Clinical Impression: Cellulitis of lip Discharge Data Discharge Date/Time-TO BE ENTERED AT DEPARTURE: 12/21/24 13:16 HPI General Mode of arrival: ambulatory . Date/Time Provider Initiated Documentation: 12/21/24 12:39 . Limitations to Documentation: no limitations . Information obtained by: patient, RN notes reviewed and old records reviewed . HPI Narrative: 39 year old female presents with right lower lip sweliing and cellulitis x 1 days. Reports purulent drainage and increased swelling. Denies any fever or chills or myalgias. Speaking in full sentences. Does have poor dentition. Reports that she tried to pop it and it got worse. Does have a history of asthma and does take methadone. Has been taking Tylenol and ibuprofen. Related Data Home Medications ?Medication ?Instructions ?Recorded ?Confirmed methadone 5 mg/5 mL oral solution 110 mg PO DAILY 08/2612/21/24 albuterol sulfate 90 mcg/actuation 2 puff inhalation Q ID PRN 02/06/20 12/21/24 aerosol inhaler shortness of breath or wheez ing #8 grams budesonide 90 mcg/actuation breath 1 inh inhalation BI D #1 ea 02/06/20 12/21/24 activated powder inhaler (Pulmicort Flexhaler) docusate sodium 100 mg capsule 100 mg PO DAILY #30 cap s 04/01/20 12/21/24 (Colace) ibuprofen 800 mg tablet 800 mg PO Q8H #20 tabs 04/0112/21/24 cephalexin 500 mg capsule 500 mg PO BID Lip cellulitis 7 12/21/24 days #14 caps Previous Rx's ?Medication ?Instructions ?Recorded albuterol sulfate 90 mcg/actuation 2 puff inhalation Q ID PRN 02/06/20 aerosol inhaler shortness of breath or wheez ing #8 grams budesonide 90 mcg/actuation breath 1 inh inhalation BI D #1 ea 02/06/20 activated powder inhaler (Pulmicort Flexhaler) docusate sodium 100 mg capsule 100 mg PO DAILY #30 cap s 04/01/20 (Colace) ibuprofen 800 mg tablet 800 mg PO Q8H #20 tabs 04/01 cephalexin 500 mg capsule 500 mg PO BID Lip cellulitis 7 12/21/24 days #14 caps Allergies Allergy/AdvReac Type Severity Reaction Status Date / Time codeine Allergy Unknown vomiting Verified 12/21/24 12:39 General Stated Complaint: Cellulitis ADINA: 3 Review of Systems Constitutional Constitutional: Denies body ache(s), Denies chills and Denies fever(s) ENT Ears, Nose, Mouth, and Throat: Denies change in voice, Denies neck mass, Denies neck pain, Denies odynophagia, Denies sore throat, Denies throat swelling and Denies tongue swelling Gastrointestinal Gastrointestinal: Denies odynophagia Musculoskeletal Musculoskeletal: Denies neck pain Integumentary/Breasts Skin/Breast: Reports as per HPI, Reports skin pain and Reports skin swelling Allergic/Immunologic Allergic/Immunologic: Denies throat swelling and Denies tongue swelling Exam HENMT Face and sinus: sinuses nontender and edema on the right lower lip and chin Mouth: oral mucosae normal, lip abnormal right lower swelling and lesion and no muffled voice Teeth and gingiva: poor dentition Course Vital Signs Vital signs: Vital Signs Temperature 36.8 C 12/21/24 12:34 Pulse 82 12/21/24 12:34 Respiratory Rate 16 12/21/24 12:34 Blood Pressure 132/85 12/21/24 12:34 Pulse Oximetry 96 12/21/24 12:34 Temperature 36.8 C 12/21/24 12:34 Pulse 82 12/21/24 12:34 Respiratory Rate 16 12/21/24 12:34 Blood Pressure 132/85 12/21/24 12:34 Blood Pressure Position Sitting 12/21/24 12:34 Pulse Oximetry 96 12/21/24 12:34 Oxygen Delivery Method Room Air 12/21/24 12:34 Oxygen Flow Rate 0 12/21/24 12:34 Pain Level 5 12/21/24 12:34 Medical Decision Making 39 year old female presents with right lower lip sweliing and cellulitis x 1 da ys. Will give Cephalexin here and to go. This text was generated using [employer] dictation system, please disregard any oddities of phrase or misspellings. PFSH All Active Problems (Updated 12/21/24 @ 12:42 by Elsie Jean NP) Cellulitis of lip (Acute) Status post repeat low transverse section (Acute) SGA (small for gestational age), , affecting care of mother, antepartum (Acute) Substance use disorder (Acute) 01/28/20. Hx of ETOH use in . Illicit Gabapentin use. Social discord (Acute) 01/28/20 Living at [facility]. BF in assisted. She had parole violation and is expecting a court hearing. Encounter for supervision of other normal , third trimester (Acute) , high-risk (Acute) Small for gestational age fetus (Acute) Other specified counseling (Acute) Rh negative state in antepartum period (Acute) Tobacco dependence (Acute) Previous section (Chronic) Depression (Chronic) no meds currently Anxiety (Chronic) No meds currently Asthma (Chronic) albuterol PRN (Acute) Marijuana abuse (Acute) Opioid dependence on agonist therapy (Acute) Family History Father Cancer Social History Smoking/Tobacco Use Status: Current every day Tobacco Type: cigarettes Smoking packs per day: 10 Smoking cigarettes per day: 200.0 Smoking risk assessment performed?: Yes Drug use: Daily Substance use type: marijuana and opiates Counseling provided: treatment program Details: 01/21/20. BAART 112mg/day Household members: significant other and other Details: BF. Gao. Children live with their father Number of Children: 2 current occupation: not employed Current gender identity: female What type of physical activity do you participate in: walking Frequency: other Details: does not have a car. Do you feel safe at home: Yes Do you feel safe in your relationship?: Yes Female Reproductive History Menstrual control method: none History History 4 Para 3 Hx # Term Pregnancies Multiple births Hx # Pregnancies Ectopic pregnancies AB induced 1 Hx Number of Living Children 3 AB spontaneous 1 Past Pregnancies Del. Date GA/Weeks # Preg Succ Route Wgt Sex Labor Lgth Anesth esia Location [facility] 04/29/14 40 No [address] [facility] 10/18/15 40 No 2409.709 g Female [facility] 04/09/20 38 No Female [place] Delivery Date: 04/29/14 Last Updated by: Sabra Brennan CNM planned due to issue with umbilical cord [place] Delivery Date: 10/18/15 Last Updated by: Sabra Brennan CNM scheduled repeat [place]
[2024-12-21] MEDS: Cephalexin 500 MG CAP, 2 CAPS/BTL PO (13:10)
[2024-12-21] MEDS: Cephalexin 500 MG CAP PO (13:10)
== END 2024-12-21 13:16 | disposition home or self-care (01) ==
PROVIDERS: Emergency Provider Registered Nurse Emergency; PCP Physician Assistant
DX: K13.0 Diseases of lips (principal)
CPT/HCPCS: 99283

== ENCOUNTER 2025-05-20 14:53 | Outpatient (REF) | payer MEDICAID, SELFPAY ==
[2025-05-20 19:07] LABS: Hemoglobin A1C 5.2 % (<5.7)
[2025-05-20 19:10] LABS: ALT 21 U/L (10-49); AST 20 U/L (<34); Albumin 4.1 g/dL (3.2-5.0); Alkaline Phosphatase 126 U/L (46-116); Anion Gap 8 mmol/L (3-11); BUN 11 mg/dL (9-23); Bilirubin, Total 0.2 mg/dL (0.2-1.2); CO2 27.0 mmol/L (20.0-31.0); Calcium 8.9 mg/dL (8.3-10.6); Chloride 106 mmol/L (98-107); Cholesterol 207 mg/dL (<200); Glucose 89 mg/dL (74-106); HDL Cholesterol 38 mg/dL (>or=50); Potassium 4.3 mmol/L (3.5-5.1); Sodium 141 mmol/L (136-145); Total Protein 7.0 g/dL (5.7-8.2)
== END 2025-05-20 14:54 | disposition home or self-care (01) ==
LOC: NCHCN 14:53
PROVIDERS: PCP Physician Assistant; Visit Provider Physician Assistant
DX: E78.5 Hyperlipidemia, unspecified (principal); Z13.1 Encounter for screening for diabetes mellitus
CPT/HCPCS: 80053; 80061; 83036